=== PATIENT | female | born 1980 | race Caucasian/White ===

== ENCOUNTER 2016-12-16 15:21 | Emergency (ER) | payer OTHER ==
[~2016-12-16] VITALS: Ht 162.6 cm; Wt 81.8 kg
[2016-12-16 15:35] VITALS: BP 151/103; PULSE 98; RESP 16; O2SAT 96
[2016-12-16] MEDS ORDERED: LEVO50TA83 PO (15:38)
[2016-12-16] MEDS ORDERED: BUSP7.5T5 PO (15:38)
[2016-12-16] MEDS ORDERED: CLON1TAB PO (15:38)
[2016-12-16 17:37] VITALS: BP 142/95; PULSE 105; RESP 16; O2SAT 98
--- NOTE | 2016-12-16 17:42 | ED.REPORT ---
HPI-Dental/Mouth Prob Date of Service Dec 16, 2016 ED Provider: Michael Key DO Pt is a 36 y.o. female who presents to the ED c/o left upper dental pain onset today. Pt states that she was seen by her dentist today and now has an impacted and fractured wisdom tooth. She was told to follow-up with an oral surgeon for further care. Pt was prescribed a mouthwash and told by the dentist to take Motrin for pain. Pt states that she receives no relief from the Motrin. Pt denies fever, chills, nausea, vomiting, and diarrhea. Nursing Notes Stated Complaint: TOOTH PAIN Chief Complaint: Dental Nursing Notes Reviewed: Yes Allergies: Coded Allergies: No Known Allergies (Unverified , 12/16/16) Scheduled Buspirone (Buspirone) 7.5 Mg Tablet 7.5 MG PO DAILY Levothyroxine (Synthroid) 50 Mcg Tablet 50 MCG PO DAILY Scheduled PRN Clonazepam (Klonopin) 1 Mg Tablet 1 MG PO BID PRN PRN For Anxiety General Time Seen by MD: 17:36 Chief Complaint Tooth pain Hx Obtained From: Patient Arrived By: Walk-in Onset Occurred: 1 - 4 hours ago Context of Onset: Recent dental procedure Symptom Duration: Since onset Location: : Gum maxillary left Quality: Painful Severity: Current: Severe Past Medical History Past Medical History None reported Past Surgical History None reported Ambulatory Status Independent Review of Systems Constitutional: Denies: Chills, Fever Ears / Nose / Throat: Reports: Toothache GI: Denies: Diarrhea, Nausea, Vomiting Complete sys rev & neg: except as marked. Physical Exam Initial Vital Signs Vital Signs (First) Date Time Temp Pulse Resp B/P Pulse Ox O2 Delivery O2 Flow Rate FiO2 12/16/16 15:35 36.7 98 16 151/103 96 Room Air Initial VS: Reviewed Head / Eyes: Atraumatic, Normocephalic, PERRL Respiratory: Breath sounds normal, No respiratory distress Cardiovascular: Regular rate & rhythm, Intact distal pulses Abdomen / GI: No distention Extremities: Vascular intact, Neuro intact Skin: Warm, Dry, No cyanosis Neurologic: Alert, Oriented, Nonfocal Psychiatric: Mood/affect normal, Behavior normal, Normal thought content ENT: Airway patent Dental / Gums: Positive: Dental impaction, Tooth fracture Sinus: Positive: Erythema present, Tender maxillary L Neck: Atraumatic Re-Eval/Medical Decision Med Decision/Clinical Course No signs of periapical dental abscess. No stridor trismus or drooling. She certainly seems in moderate amount of pain. Her blood pressure was elevated she thinks this is from pain. Evidently her blood pressure is normal most the time. I will place her on a short course of Percocet. Heart is a physician infections, put her on some antibodies as well. I do recommend that she follows her blood pressure closely and keeps her oral surgery visit. Routine opiate warnings given. Discharge & Departure Primary Impression: Dental infection Additional Impression: Pain, dental Disposition: Home Discharge Condition All VS Reviewed: Yes Condition: Stable Additional Instructions: You were seen here today for dental pain and infection. Take Augmentin twice daily for the next 5 days. Take 1-2 [place] as needed for severe pain every 6 hours. Take sparingly as it can be habit forming. Do not drink, drive, or consume acetaminophen while taking [place]. Keep your follow-up appointment on Tuesday. Return if you have any new or worsening symptoms. Referrals: Cindi Canales PA-C (PCP) Rigoberto Attestation Portions of this note were transcribed by Ernestina Lopez. I, Dr. Key personally performed the history, physical exam and medical decision-making; I reviewed and confirmed the accuracy of the information in the transcribed note. Signed by : Rigoberto Marroquin, 12/16/16 and 1757. copies to: Cindi Canales PA-C, Todd P DO Dec 16, 2016 17:41 ERNESTINA LOPEZ Dec 16, 2016 17:53
== END 2016-12-16 17:48 ==
LOC: SED 15:21
DX: K04.7 Periapical abscess without sinus (principal); K08.89 Other specified disorders of teeth and supporting structures